=== PATIENT | female | born 1980 | race Asian ===

== ENCOUNTER 2016-11-04 00:10 | Inpatient (IN) | payer SELFPAY ==
[~2016-11-04] VITALS: Ht 163 cm; Wt 74.0 kg
[~2016-11-04 00:10] MED LIST: IBUP-974 PO; MULT-298 PO
[2016-11-04] MEDS ORDERED: NALBUPHINE 10 MG/ML AMP IVP PRN (00:50)
[2016-11-04] MEDS ORDERED: CARBOPROST 250 MCG/ML AMP IM PRN (00:50)
[2016-11-04] MEDS ORDERED: OXYTOCIN 10 UNITS/ML VIAL IM ONE (00:50)
[2016-11-04] MEDS ORDERED: METHYLERGONOVINE 0.2 MG/ML AMP IM SCH (00:50)
[2016-11-04] MEDS ORDERED: OXYTOCIN 20 UNITS/LR PREMIX 1,000 ML IV SCH (00:50)
[2016-11-04] MEDS ORDERED: AMPICILLIN 2,000 MG in NACL 0.9% 100 ML IV SCH (00:50)
[2016-11-04] MEDS ORDERED: IBUPROFEN 800 MG TAB PO PRN ×2 (00:50→16:10)
[2016-11-04] MEDS ORDERED: PROMETHAZINE 25 MG/ML VIAL IVP PRN (00:50)
[2016-11-04 01:18] LABS: BASOPHILS % (AUTO) 0.3 % (0.0-2.0); EOSINOPHILS # (AUTO) 0.1 K/uL (0-0.4); EOSINOPHILS % (AUTO) 1.6 % (0.0-4.0); HEMATOCRIT 35.1 % (36-48); HEMOGLOBIN 11.4 g/dL (12.0-16.0); LYMPHOCYTES # (AUTO) 1.5 K/uL (2.5-16.5); LYMPHOCYTES % (AUTO) 17.8 % (20.5-51.1); MEAN CORPUSCULAR HEMOGLOBIN 30 pg (27-31); MEAN CORPUSCULAR HGB CONC 33 g/dL (33-37); MEAN CORPUSCULAR VOLUME 93 fL (80-94); MONOCYTES # (AUTO) 0.6 K/uL (0.8-1.0); MONOCYTES % (AUTO) 7.1 % (1.7-9.3); NEUTROPHILS # (AUTO) 6.5 K/uL (1.8-7.7); NEUTROPHILS % (AUTO) 73.2 % (42.2-75.2); PLATELET COUNT (AUTO) 176 K/uL (140-450); RED BLOOD CELL COUNT(AUTO) 3.76 MIL/uL (4.20-5.40); RED CELL DISTRIBUTION WIDTH 13.7 % (11.6-13.7); WHITE BLOOD COUNT (AUTO) 8.7 K/uL (4.8-10.8)
[2016-11-04] MEDS: LACTATED RINGERS 1,000 ML IV SCH ×3 (01:26→04:23)
[2016-11-04 01:30] LABS: ALBUMIN 2.7 g/dL (3.4-5.0); ANION GAP 13.7 (8-16); CALCIUM 8.3 mg/dL (8.5-10.1); CREATININE 0.5 mg/dL (0.6-1.3); POTASSIUM 3.7 mmol/L (3.5-5.1); TOTAL BILIRUBIN 0.4 mg/dL (0.0-1.0); TOTAL PROTEIN, SERUM 6.8 g/dL (6.4-8.2)
[2016-11-04] MEDS ORDERED: PREN-380 PO (01:32)
[2016-11-04 01:52] LABS: HIV RAPID SCREEN NON-REACTIVE (NON REACTIV)
[2016-11-04 02:26] VITALS: BP 108/64
[2016-11-04] MEDS ORDERED: ROPIVACAINE 0.2%/NS PREMIX 250 ML EPI ONE (02:40)
[2016-11-04] MEDS ORDERED: AMPICILLIN 2,000 MG VIAL ONE (02:41)
[2016-11-04] MEDS ORDERED: AMPICILLIN 1,000 MG in NACL 0.9% 50 ML IV SCH (04:00)
[2016-11-04 04:21] LABS: APPEARANCE,URINE CLEAR (CLEAR); BILIRUBIN,URINE NEGATIVE (NEGATIVE); BLOOD, URINE TRACE-I (NEGATIVE); COLOR,URINE YELLOW (YELLOW); LEUKOCYTE ESTERASE ,URINE NEGATIVE (NEGATIVE); NITRITE, URINE NEGATIVE (NEGATIVE); PH,URINE 6.5 (5.0-9.0); PROTEIN,URINE NEGATIVE (NEGATIVE); UGLUCOSE NEGATIVE (NEGATIVE); UROBILINOGEN,URINE 0.2 EU/dL (0.2 - 1)
[2016-11-04 04:31] LABS: BACTERIA,URINE FEW /HPF (None Seen); RBC,URINE 0-5 (RARE) /HPF (0-5); SQUAMOUS EPITHELIAL CELL,UR 0-3 (FEW) /LPF (0-3 (FEW)); WBC,URINE NONE SEEN /HPF (0-5)
[2016-11-04] MEDS ORDERED: OXYTOCIN 20 UNITS/LR PREMIX 1,000 ML IV ONE (04:35)
[2016-11-04] MEDS ORDERED: OXYTOCIN 10 UNITS/ML VIAL ONE (06:53)
--- NOTE | 2016-11-04 10:09 | NUR ---
PATIENT HAS BEEN SCREENED AND CATEGORIZED LOW NUTRITION RISK. PATIENT WILL BE SEEN WITHIN 7 DAYS OF ADMISSION. 11/10/[address]
[2016-11-04 13:39] LABS: RAPID PLASMA REAGIN NON-REACTIVE (Non Reactiv)
[2016-11-04] MEDS ORDERED: oxyCODONE/APAP 5/325 MG 1 TAB TAB PO PRN (16:10)
[2016-11-04] MEDS ORDERED: METHYLERGONOVINE 0.2 MG/ML AMP IM PRN (16:10)
[2016-11-04] MEDS ORDERED: BENZOCAINE/MENTHOL 20%-0.5% 60 GM CAN TP PRN (16:10)
[2016-11-04] MEDS ORDERED: TEMAZEPAM 15 MG CAP PO PRN (16:10)
[2016-11-04] MEDS ORDERED: WITCH HAZEL 40 PAD PACKAGE TP PRN (16:10)
[2016-11-04] MEDS ORDERED: HYDROcodone/APAP 5/325 MG 1 TAB TAB PO PRN (16:10)
[2016-11-04] MEDS ORDERED: MEASLES, MUMPS, AND RUBELLA 1 VIAL SQVAC PRN (16:10)
[2016-11-04] MEDS ORDERED: OXYTOCIN 10 UNITS/ML VIAL IM PRN (16:10)
[2016-11-04] MEDS ORDERED: DOCUSATE SOD/SENNA 50/8.6 MG 1 TAB PO SCH (21:00)
[2016-11-05 06:02] LABS: HEMATOCRIT 33.7 % (36-48); HEMOGLOBIN 10.7 g/dL (12.0-16.0)
[2016-11-06] MEDS ORDERED: SHARK OIL/PHENYLEPHRINE 60 GM TUBE TP PRN (10:10)
[2016-11-06] MEDS ORDERED: DOCUSATE SOD/SENNA 50/8.6 MG 1 TAB PO SCH (14:45)
[2016-11-06] MEDS ORDERED: DOCUSATE SODIUM 100 MG GELCAP PO PRN (15:00)
== END 2016-11-06 15:15 | disposition home or self-care (01) | DRG 766 ==
LOC: MLD 00:10 → MFCC 18:22
PROVIDERS: ADMIT Obstetrics & Gynecology; ATTEND Obstetrics & Gynecology
PROC: 10D00Z1 Extraction of Products of Conception, Low, Open Approach (ICD-10-PCS; principal; 2016-11-04)
DX: O32.1XX0 Maternal care for breech presentation, not applicable or unspecified (principal); Z37.0 Single live birth; Z3A.39 39 weeks gestation of pregnancy
CPT/HCPCS: 36415; 51702; 59409; 80053; 81001; 85018; 85025; 86592; 86886; 86900; 86901; 87653-90; 90707; J0290; J2590; J2795; J7120